=== PATIENT | male | born 1995 | race Caucasian/White ===

== ENCOUNTER 2024-04-12 21:08 | Emergency (ER) | payer OTHER ==
[~2024-04-12] VITALS: Ht 177.8 cm; Wt 131.4 kg
[~2024-04-12 21:08] MED LIST: LEVOFLOXACIN500 MG PO; METFORMIN HCL500 MG PO; SUDOGEST30 MG PO
--- OUTSIDE RECORDS SUMMARY | 2024-04-12 21:10 | XMS ---
PreManage Notification: KEELEY VALDEZ [employer] Manager Events No recent Security Events currently on file CRITERIA MET - [facility] - 2 Visits in 30 Days CARE PROVIDERS MALDONADO BROWN [facility] [place] 01/25/2017-Current PHONE: Unknown -[facility] Dentist: Night Patrol Inspector [facility] PHONE: [phone] -Britt- Dentist: Night Patrol Inspector [facility] PHONE: [phone] WENDIE HWANG [facility] Current PHONE: Unknown Kalina has no Care Guidelines for this patient. Aubrey VISIT COUNT (12 MO.) 2 [facility] TOTAL 2 NOTE: Visits indicate total known visits. ED/UCC VISIT TRACKING (12 MO.) 04/12/2024 21:09 [facility] TYPE: Emergency COMPLAINT: - EAR PROBLEM 03/20/2024 11:[address] [facility] [place] TYPE: Emergency COMPLAINT: - EAR PAIN DIAGNOSES: - Epididymitis - Otalgia, left ear - Other specified disorders of Eustachian tube, left ear - Type 2 diabetes mellitus without complications INPATIENT VISIT TRACKING (12 MO.) No inpatient visits to display in this time frame [email or web address]
[2024-04-12] MEDS ORDERED: FLONASE ALLERG9.9 ML NAS (21:24)
[2024-04-12] MEDS ORDERED: NEOMYCIN/POLYMYXIN/HYDROCORT 10 ML HOME.PACK OTIC ONE (21:30)
[2024-04-12 21:46] VITALS: BP 158/99
== END 2024-04-12 21:46 | disposition home or self-care (01) ==
LOC: ED 21:08
DX: H60.92 Unspecified otitis externa, left ear (principal); J30.9 Allergic rhinitis, unspecified; H69.82 Other specified disorders of Eustachian tube, left ear; E11.9 Type 2 diabetes mellitus without complications; Z79.84 Long term (current) use of oral hypoglycemic drugs
CPT/HCPCS: 99282